=== PATIENT | female | born 2000 | race Caucasian/White ===

== ENCOUNTER 2022-09-13 15:26 | Emergency (ER) | payer BC, SELFPAY ==
--- NOTE | ~2022-09-13 | XR_ITS ---
EXAMINATION: XR ankle RT min 3V DATE: 09/13/2022 15:49 INDICATION: Lateral right ankle pain with numbness and tingling while walking following injury one mo nth prior TECHNIQUE: Anteroposterior, oblique, mortise, and lateral views of the right ankle were obtained. COMPARISON: None. FINDINGS: Alignment is normal. No fracture. Joint spaces are well maintained. Small Achilles and plantar calca tom spurs. No ankle joint effusion. The soft tissues are unremarkable. IMPRESSION: 1. Small Achilles and plantar calcaneal spurs. Otherwise unremarkable right ankle radiographs. Reviewed, dictated and finalized at location A. IMPRESSION: 1. Small Achilles and plantar calcaneal spurs. Otherwise unremarkable right ank le radiographs.
[2022-09-13 15:39] VITALS: BP 143/93; PULSE 98; RESP 14; TEMP 36.6; O2SAT 99
--- NOTE | 2022-09-13 15:44 | ED.LOWEXIN ---
HPI - Extremity Injury (Lower) General Chief Complaint: Extremity Injury, Lower Stated Complaint: Right Foot Pain Source: patient and RN notes reviewed History of Present Illness HPI Narrative: 22-year-old female presents to urgent care complaints of right lateral ankle pain. Patient states approximately 3 weeks ago she stepped in a pothole on her way to work, testing her right ankle. Patient states she began having numbness and tingling to her right foot about 1 week ago. Patient has been taking ibuprofen at home with minimal relief. Denies any other injuries has no complaints. Some parts of this dictation were generated by voice recognition software and may contain typographical and/or grammatical inaccuracies. Related Data Home Medications Medication Instructions Recorded Confirmed No Home Medications 09/13/22 09/13/22 Allergies Allergy/AdvReac Type Severity Reaction Status Date / Time No Known Allergies Allergy Verified 09/13/22 15:51 Review of Systems Review of Systems: CONSTITUTIONAL: Denies fever, chills, or sweats. EYES: Denies visual changes, redness, or discharge. ENT: Denies otalgia and sore throat CARDIOVASCULAR: Denies chest pain, palpitations, or edema. RESPIRATORY: Denies cough or dyspnea. GASTROINTESTINAL: Denies abdominal pain, nausea, vomiting, or diarrhea. GENITOURINARY: Denies dysuria or hematuria. SKIN: Denies rash or itching. MUSCULOSKELETAL: Right lateral ankle pain. NEUROLOGIC: Denies headache, numbness, or weakness. Pertinent positives per HPI. PMFSH Comments At the time of my signature, I reviewed and agree with the nursing past medical, surgical, social, and family history. There is no relevant family history pertinent to the patient complaint. Exam Narrative: GENERAL: This is a well-nourished, well-developed patient, in no apparent distress. HEAD: normocephalic, atraumatic. EYES: Sclera clear/white. Vision is grossly intact. EARS: External ears normal, auditory canals clear and without drainage. Hearing grossly intact. NOSE: External nose normal with no obvious nasal discharge, nares without redness, no rhinorrhea. THROAT: Mucous membranes moist, posterior pharynx clear. NECK: Neck supple, non-tender without lymphadenopathy, masses or thyromegaly. CARDIOVASCULAR: Regular rate RESPIRATORY: no respiratory distress SKIN: warm, intact with no suspicious lesions or rash, good texture and turgor. NEURO: awake, alert, and oriented to person, place and time. There were no obvious focal neurologic abnormalities. EXTREMITIES: right lateral ankle swelling, mild. no bony tenderness. Course Course Level of Care: Express Care Visit Vital Signs Vital signs: Vital Signs Temperature 97.9 F 09/13/22 15:39 Pulse Rate 98 09/13/22 15:39 Respiratory Rate 14 09/13/22 15:39 Blood Pressure 143/93 H 09/13/22 15:39 Pulse Oximetry 99 09/13/22 15:39 Oxygen Delivery Room Air 09/13/22 15:39 Temperature 97.9 F 09/13/22 15:39 Pulse Rate 98 09/13/22 15:39 Respiratory Rate 14 09/13/22 15:39 Blood Pressure 143/93 H 09/13/22 15:39 Pulse Oximetry 99 09/13/22 15:39 Oxygen Delivery Room Air 09/13/22 15:39 Reviewed MDM - Extremity Injury (Lower) MDM Narrative Medical decision making narrative: Use the RICE method at home. May take ibuprofen and/or Tylenol if needed. If symptoms persist in 1 week after conservative treatment, follow-up with specialist. Differential Diagnosis Differential diagnosis: Likely ankle sprain and strain, ankle fracture and other (Dislocation) Imaging Data Radiologist's impression: [facility] [address] [place] [address] XRay Report Signed Patient: Renate Ruggiero : 2000 MR#: [id number] Age/Sex: 22 / F Acct:[id number] Loc: [facility]? ? ADM Date: 09/13/22Attending Dr: Ordering Physician: Kathleen Bocanegra APRN Date of Service: 09/13/22 Proce
== END 2022-09-13 16:11 | disposition home or self-care (01) ==
PROVIDERS: Emergency Provider Nurse Practitioner Family; PCP Physician Assistant
DX: S93.401A Sprain of unspecified ligament of right ankle, initial encounter (principal); S96.911A Strain of unspecified muscle and tendon at ankle and foot level, right foot, initial encounter; X50.9XXA Other and unspecified overexertion or strenuous movements or postures, initial encounter
CPT/HCPCS: 73610; 99213; G0463